=== PATIENT | female | born 1995 | race Two or more races ===

== ENCOUNTER 2019-12-13 10:03 | Inpatient (IN) | payer OTHER ==
[~2019-12-13] VITALS: Ht 160 cm; Wt 3.2 kg
[2019-12-28] MEDS ORDERED: PRENATAL TABLE1 EAC1 PO (14:09)
== END 2019-12-31 12:06 | DRG 788 ==
LOC: OB/GYN 12-28 13:20 → LDR 12-28 13:20 → OB/GYN 12-28 21:26
PROVIDERS: ADMIT Obstetrics & Gynecology Maternal & Fetal Medicine; ATTEND Obstetrics & Gynecology Maternal & Fetal Medicine
PROC: 4A0HXFZ Measurement of Products of Conception, Cardiac Rhythm, External Approach (ICD-10-PCS; 2019-12-28)
PROC: 10D00Z1 Extraction of Products of Conception, Low, Open Approach (ICD-10-PCS; principal; 2019-12-28 20:00)
DX: O82 Encounter for cesarean delivery without indication (principal); O32.1XX0 Maternal care for breech presentation, not applicable or unspecified; Z3A.39 39 weeks gestation of pregnancy; Z37.0 Single live birth

== ENCOUNTER 2024-06-29 15:34 | Emergency (ER) | payer OTHER ==
[~2024-06-29] VITALS: Ht 162.6 cm; Wt 90.7 kg
[~2024-06-29 15:34] MED LIST: PRENATAL TABLE1 EAC1 PO
[2024-06-29 16:58] LABS: HEMATOCRIT 34.1 % (36.0-45.00); HEMOGLOBIN 11.2 g/dL (12.0-15.00); MEAN CELL VOLUME 77.6 fL (80.00-100.00); MEAN CORPUSCULAR HEMOGLOBIN 25.4 pg (27.00-32.0); MEAN CORPUSCULAR HGB CONC 32.8 g/dl (32.0-36.0); PLATELET COUNT 334 K/uL (150-450); RED BLOOD COUNT 4.39 M/uL (4.00-6.00); RED CELL DISTRIBUTION WIDTH 15.8 % (11.5-14.5)
[2024-06-29 17:21] LABS: INR 0.95; PARTIAL THROMBOPLASTIN TIME 31.3 SECONDS (22.0-34.0); PROTHROMBIN TIME 10.4 SECONDS (9.0-11.5)
== END 2024-06-29 22:48 | disposition home or self-care (01) ==
LOC: ER 15:37
PROVIDERS: General Practice
DX: N93.9 Abnormal uterine and vaginal bleeding, unspecified (principal)